=== PATIENT | male | born 1965 | race Caucasian/White ===

== ENCOUNTER 2018-06-21 09:08 | Emergency (ER) ==
[2018-06-21 09:18] VITALS: BP 137/90; TEMP 97.5; BMI 28.4
--- NOTE | 2018-06-21 10:42 | CT ---
EXAM: CT of the abdomen pelvis with contrast History: Right groin pain and hernia. Comparison: None available. Technique: Multiplanar CT images through the abdomen pelvis were obtained following administration o f IV contrast Findings: Calcified granulomas seen within the right lower lobe. Lung bases are free of consolidati on. No acute osseous abnormalities. Multiple gallstones. No liver or splenic lesions. Mild atherosclerotic vascular calcifications. Pa ncreas is within normal limits. Adrenal glands are normal. Kidneys are normal. The appendix is nor mal. Scattered colonic stool. No bladder wall thickening. Prostate is not enlarged. No perirectal inflammation. Right inguinal hernia containing fat and scarring measuring 10 cm x 4.4 cm. The left inguinal hernia measuring 5.4 cm. No bowel is seen within these hernias. No bowel obstruction. Impression: 1. Moderate sized right inguinal hernia containing fat and scarring. 2. Small fat-containing left inguinal hernia. 3. No bowel obstruction. 4. Cholelithiasis
--- NOTE | 2018-06-21 10:50 | ED.PDOC ---
General ED Provider: Dr. ESTHELA CORONADO Chief Complaint: Abdominal Pain Stated Complaint: right lower pain hx /o hernia vomited x 1 at [facility] Time Seen by Physician: 09:17 (seen with police at all times ) Mode of Arrival: Walk-In Information Source: Patient, Police Exam Limitations: No limitations Nursing and Triage Documentation Reviewed and Agree: Yes Does patient meet sepsis criteria?: No System Inflammatory Response Syndrome: Not Applicable Sepsis Protocol: For patient's 13 years and over: Temp is 96.8 and below OR 101 and greater Pulse >90 BPM Resp >20/minute Acutely Altered Mental Status Are patient's symptoms suggestive of a new infection, such as: -Pneumonia -Skin, Soft Tissue -Endocarditis -UTI -Bone, Joint Infection -Implantable Device -Acute Abdominal Infection -Wound Infection -Meningitis -Blood Stream Catheter Infection -Unknown GI Complaint Exam - Abdominal Pain Complaint/Exam Onset: Gradual Duration: today Symptoms Are: Still present Timing: Constant Initial Severity: Mild Current Severity: Mild Location of Pain: RLQ Radiates To: Denies: Chest, Back, Flank, LLQ, RLQ, Inguinal Character: Reports: Aching Alleviating: Reports: None Associated Signs and Symptoms: Reports: Vomiting (x1). Denies: Diaphoresis, Fever, Cough, Chest pain, Dizziness, Back pain, Constipation, Blood in stool, Dysuria, Urinary frequency, Decreased urine output, Decreased appetite, Discharge, Nausea, Diarrhea, Decreased activity AAA Risk Factors: Reports: None Cardiac Risk Factors: Reports: None Testicular Torsion Risk Factors: Reports: None Surgical Obstruction Risk Factors: Reports: None Related Surgical History: Reports: None Abdominal Findings: Present: None Differential Diagnoses: Other (incarcerated hernia) Review of Systems - Review Of Systems Constitutional: Reports: No symptoms Eyes: Reports: No symptoms Ears, Nose, Mouth, Throat: Reports: No symptoms Respiratory: Reports: No symptoms Cardiac: Reports: No symptoms GI: Reports: Abdominal pain : Reports: No symptoms Musculoskeletal: Reports: No symptoms Skin: Reports: No symptoms Neurological: Reports: No symptoms Endocrine: Reports: No symptoms Hematologic/Lymphatic: Reports: No symptoms All Other Systems: Reviewed and Negative Past Medical History - Past Medical History Previously Healthy: Yes Endocrine: Reports: None Cardiovascular: Reports: None Respiratory: Reports: None Hematological: Reports: None Gastrointestinal: Reports: None Genitourinary: Reports: None Neuro/Psych: Reports: None Musculoskeletal: Reports: None Cancer: Reports: None - Surgical History General Surgical History: Reports: Other (hernia) - Family History Family History: Reports: Unknown - Social History Smoking Status: Current every day smoker, Heavy tobacco smoker Hx Substance Use: Yes (meth) Alcohol Screening: None Physical Exam - Physical Exam Appearance: Well-appearing, No pain distress, Well-nourished Eyes: JOHNATHAN, EOMI, Conjunctiva clear ENT: Ears normal, Nose normal, Oropharynx normal Respiratory: Airway patent, Breath sounds clear, Breath sounds equal, Respirations nonlabored Cardiovascular: RRR, Pulses normal, No rub, No murmur GI/: Soft, Nontender, No masses, Bowel sounds normal, No Organomegaly Musculoskeletal: Normal strength, ROM intact, No edema, No calf tenderness Skin: Warm, Dry, Normal color Neurological: Sensation intact, Motor intact, Reflexes intact, Cranial nerves intact, Alert, Oriented Psychiatric: Affect appropriate, Mood appropriate Interpretation - Radiology Interpretation Radiology Interpretation By: Radiologist Radiology Results: No acute changes Critical Care Note - Critical Care Note Total Time (mins): 0 Course - Course Hematology/Chemistry: 06/21/18 09:40 06/21/18 09:40 Orders, Labs, Meds: Lab Review 06/21/18 06/21/18 09:40 09:40 WBC 9.84 RBC 5.32 Hgb 15.5 Hct 46.6 MCV 87.6 MCH 29.1 MCHC 33.3 RDW Coeff of [place] 12.8 Plt Count 336 Immature Gran % (Auto) 0.2 Neut % (Auto) 51.3 Lymph % (Auto) 38.2 [place] % (Auto) 8.2 Eos % (Auto) 1.7 Baso % (Auto) 0.4 Immature Gran # (Auto) 0.0 Neut # (Auto) 5.0 Lymph # (Auto) 3.8 H [place] # (Auto) 0.8 Eos # (Auto) 0.2 Baso # (Auto) 0.0 Sodium 142.7 Potassium 4.69 Chloride 105.1 Carbon Dioxide 30.4 H Anion Gap 11.89 BUN 19.0 Creatinine 0.93 Estimated GFR (MDRD) 86.00 BUN/Creatinine Ratio 20.43 Glucose 85.9 Calcium 8.99 Total Bilirubin 0.36 AST 31.8 ALT 32.9 Alkaline Phosphatase 65.2 Total Protein 6.99 Albumin 4.00 Globulin 2.99 Albumin/Globulin Ratio 1.33 Orders Category Date Time Status NPO REMINDER: IMAGING ONCE CARE 06/21/18 09:32 Completed CBC W/ AUTO DIFF Stat LAB 06/21/18 09:40 Completed COMPREHENSIVE METABOLIC PANEL Stat LAB 06/21/18 09:[address] ABDOMEN/PELVIS W CONTRAST Stat RADS 06/21/18 09:31 Completed Vital Signs: Temp Pulse Resp BP Pulse Ox 06/21/18 09:10 97.5 F L 72 20 137/90 98 Departure - Departure Time of Disposition: 10:51 Disposition: HOME SELF-CARE Discharge Problem: Abdominal pain Instructions: Abdominal Pain (ED), Inguinal Hernia Repair (DC) Condition: Good Pt referred to PMD for follow-up: Yes IPMP verified?: No Additional Instructions: Please call your Family Physician as soon as possible to schedule a follow-up appointment. Allergies/Adverse Reactions: Allergies codeine Adverse Reaction (Verified 08/21/14 15:36) ibuprofen Adverse Reaction (Unverified 06/12/18 13:52) States upset stomach. Has taken since without problem
== END 2018-06-21 11:00 | disposition home or self-care (01) ==
LOC: ED 09:08
DX: R10.31 Right lower quadrant pain (principal); K40.90 Unilateral inguinal hernia, without obstruction or gangrene, not specified as recurrent; F17.210 Nicotine dependence, cigarettes, uncomplicated
CPT/HCPCS: 36415; 80053; 85025; 99283